=== PATIENT | male | born 1945 | race Caucasian/White ===

== ENCOUNTER → 2016-09-17 | Outpatient (CLI) | payer MEDICARE, OTHER ==
[~2016-09-17] MED LIST: CIPRO PO; FENOFIBRATE160 MG PO; FLOMAX0.4 M1 PO; GLIMEPIRIDE2 MG PO; METFORMIN HCL500 M2 PO; NORCO1 TAB 10/3 DOB
--- NOTE | ~2016-09-17 | CT57 ---
[facility] A Service of [facility] & [facility] RADIOLOGY TEXT RESULTS PATIENT: MAGED PETERSEN LOCATION: [facility] : 41 UNIT #: [id number] AGE: [address]: Marcelle Gong SEX: M ORDER DR: [id number] [address] [address] [id number] MR#: [id number] Acc #: [id number] NAME: MAGED PETERSEN. : 1945 SEX: M STUDY DATE/TIME: 09/17/2016 12:30 UNIT: [facility] ROOM: STUDY DESCRIPTION: CT Chest Wo Cont Attending Physician: Marcelle Gong A.P.R.N. Referring Physician: Marcelle Gong A.P.R.N. Ordering Physician: Marcelle Gong A.P.R.N. Primary Care Physician: Jorge Carreno M.D. MEDICAL IMAGING REPORT This report is preliminary unless electronic signature is present. EXAM CT chest without contrast high resolution 09/17/2016 1230 hours HISTORY 1-year follow up of fluid on lungs. Diagnosis of bronchiectasis. COMPARISON CT chest 08/21/2015. TECHNIQUE Routine helical noncontrasted images were obtained from the thoracic inlet through the adrenal glands. Patient then underwent high-resolution protocol with 1 mm thick images at high resolution technique in the supine position at full inspiration. Additional supine high-resolution expiratory phase images were obtained at the arch, aliyah and bases. The patient then was turned to the prone position for similar high-resolution images through the lung bases only. No contrast was administered. Total exam DLP is 664 mGy-cm. This CT examination was performed with one or more of the following radiation dose reduction techniques: automatic exposure control, adjustment of mA and/or kV according to patient size, and iterative reconstruction. FINDINGS Routine helical images demonstrate no thyroid lesion. Images through the chest demonstrate multiple small supraclavicular, axillary, mediastinal and hilar lymph nodes present on prior study. There also benign calcified nodes. Example subcarinal node measures 3.7 x 2.0 cm previously 3.1 x 1.7 cm. There are diffuse coronary calcifications. Cardiac chambers, pericardium are normal. There is minimal ectasia throughout the aorta without aneurysm. There is a small hiatal hernia containing predominantly fat and small STS. [facility] A Service of [facility] & [facility] RADIOLOGY TEXT RESULTS PATIENT: MAGED PETERSEN LOCATION: [facility] : 41 UNIT #: [id number] AGE: [address]: Marcelle Gong SEX: M ORDER DR: lymph nodes. The routine lung window images demonstrate peribronchiolar wall thickening in the lingular segment of the left upper lobe, minimal involvement of right middle lobe with severe involvement of both lower lobes with bronchiectasis and mucous plugging appearing minimally improved from prior exam. There is a nodular-appearing area at the medial right lung base felt likely to represent mucus plugging rather than a true lung nodule. This measures 1.3 cm. Limited views through the abdomen again demonstrate splenomegaly. No adrenal lesion is seen. The high resolution exam confirms the presence of bilateral lower lobe bronchiectasis with mild bronchiectasis in the lingula and right middle lobe. There are areas of mucous plugging in both lower lobes again demonstrated. These are minimally improved over the prior study but do persist. Expiratory phase images demonstrate no significant air trapping. The prone images confirm the presence of bronchiectasis and mucous plugging. IMPRESSION 1. There is persistent prominence of lymph nodes in the mediastinum, axillary region, supraclavicular region with associated splenomegaly. Findings are stable to minimally increased. 2. Again demonstrated is evidence of bronchiectasis in the lower lobes with areas of mucous plugging. These are minimally improved over 08/21/2015 but not resolved. There is peribronchiolar wall thickening in the lingula greater than right middle lobe. 3. Nodular area measuring 1.3 cm at the medial right lung base is felt to represent mucus plugging rather than a true lung nodule. 4. There is no pleural effusion. 5. Normal adrenal glands. Dictated by... Diane Ferguson M.D. THIS IS AN ELECTRONICALLY VERIFIED REPORT Diane Ferguson M.D. at 09/18/2016 2:31 PM KIRBY/raul TD: 09/18/2016 11:21 JOB #: [id number] [facility] A Service of [facility] RADIOLOGY TEXT RESULTS PATIENT: MAGED PETERSEN LOCATION: [facility] : 41 UNIT #: [id number] AGE: [address]: Marcelle Gong SEX: M ORDER DR: MEDICAL IMAGING REPORT Page 1 of 1
== END | disposition home or self-care (01) ==
LOC: CCAT 09:20 → SCT 12:16 → CCAT 13:00 → SCT 13:00
DX: J47.9 Bronchiectasis, uncomplicated (principal); R16.1 Splenomegaly, not elsewhere classified; T17.590A Other foreign object in bronchus causing asphyxiation, initial encounter
CPT/HCPCS: 71250